=== PATIENT | male | born 1970 | race Asian ===

== ENCOUNTER 2019-06-23 06:50 | Emergency (ER) | payer BC ==
[~2019-06-23] VITALS: Ht 340.4 cm; Wt 78.0 kg
[2019-06-23 07:27] LABS: CLARITY,URINE CLEAR (Clear); COLOR,URINE YELLOW (Yellow); GLUCOSE, URINE NEGATIVE (Neg); KETONES,URINE NEGATIVE (Neg); LEUKOCYTE ESTERASE ,URINE NEGATIVE (Neg); NITRITES, URINE NEGATIVE (Neg); OCCULT BLOOD,URINE LARGE (Neg); PROTEIN,URINE NEGATIVE (Neg); UROBILINOGEN,URINE 0.2 E.U/dL (0.2-1.0)
[2019-06-23 07:30] LABS: UA COLLECTION TYPE CLN CATCH MIDSTREAM
[2019-06-23 07:41] LABS: BACTERIA,URINE FEW /HPF (Neg); MUCUS STRANDS FEW /LPF (Neg); RBC,URINE 50-100 /HPF (0-2); SQUAMOUS EPITHELIAL CELL,UR FEW /LPF (FEW); WBC,URINE 0-4 /HPF (0-4)
[2019-06-23 07:58] VITALS: BP 140/94
== END 2019-06-23 09:32 | disposition home or self-care (01) ==
LOC: ER 06:51
DX: R31.9 Hematuria, unspecified (principal); Z87.442 Personal history of urinary calculi
CPT/HCPCS: 74176; 81001; 99284